=== PATIENT | female | born 1940 | race Two or more races ===

== ENCOUNTER 2023-10-27 18:19 | Inpatient (IN) | payer MEDICAID, OTHER ==
[~2023-10-27] VITALS: Ht 152.4 cm; Wt 145.5 kg
[2023-10-27 19:38] LABS: Basophils # (auto) 0.1 10 ^3/uL (0-0.2); Basophils % (auto) 0.9 % (0.0-2.0); Eosinophils # (auto) 0.3 10 ^3/uL (0-0.8); Eosinophils % (auto) 4.3 % (0.0-7.0); Hematocrit 33.7 % (36.0-46.0); Hemoglobin 11.4 g/dL (12.2-16.2); Lymphocytes # (auto) 1.1 10 ^3/uL (0.4-5.4); Lymphocytes % (auto) 16.7 % (10.0-50.0); Mean Corpuscular Hemoglobin 31.6 pg (28.0-32.0); Mean Corpuscular Hgb Conc. 33.8 g/dL (32.0-36.0); Mean Corpuscular Volume 93.6 fL (80.0-100.0); Monocytes # (auto) 0.5 10 ^3/uL (0-1.3); Monocytes % (auto) 8.4 % (0.0-12.0); Neutrophils # (auto) 4.4 10 ^3/uL (1.6-8.6); Neutrophils % (auto) 69.7 % (37.0-80.0); Nucleated Red Blood Cells % 0.1 %; Platelet Count (auto) 132 10^3/uL (140-450); Red Blood Cells 3.61 10^6/uL (4.0-5.20); White Blood Cell 6.3 10^3/uL (4.4-10.8)
[2023-10-27 19:57] LABS: Alanine Aminotransferase 12 U/L (7-40); Albumin 3.7 g/dL (3.2-4.8); Alkaline Phosphatase 61 U/L (46-116); Anion Gap 6 (5-15); Calcium 8.9 mg/dL (8.7-10.4); Carbon Dioxide 24 mmol/L (20-30); Chloride 107 mmol/L (98-107); Glucose 140 mg/dL (74-106); Potassium 4.5 mmol/L (3.5-5.1); Sodium 137 mmol/L (136-145)
[2023-10-27 19:58] LABS: Aspartate Aminotransferase 15 U/L (13-40); Bilirubin, Total 0.3 mg/dL (0.2-1.0); Blood Urea Nitrogen 17 mg/dL (9-23); Total Protein 6.3 g/dL (5.7-8.2)
[2023-10-27] MEDS ORDERED: ACETAMINOPHEN 325 MG TAB PO PRN (21:15)
[2023-10-27 22:00] VITALS: PULSE 80; RESP 12; O2SAT 97
[2023-10-27 22:14] LABS: INR 1.03 (0.9-1.15); Partial Thromboplastin Time 29.6 SEC (24.5-34.5); Prothrombin Time 10.9 sec (9.3-11.8)
[2023-10-27] MEDS: fentaNYL CITRATE 100 MCG/2 ML VL IV ONE (22:25)
[2023-10-27] MEDS: SODIUM CHLORIDE 0.9% 500 ML IV ONE (22:26)
[2023-10-27] MEDS: HYDROcodone-ACET 5/325MG TAB PO ONE (22:26)
[2023-10-27] MEDS: hydrALAZINE HCL 20 MG/ML VL IV PRN (23:00)
[2023-10-28] VITALS (8 sets, daily range): BP systolic 121–155; BP diastolic 51–79; PULSE 64–83; RESP 16–20; TEMP 97.6–98.4; O2SAT 96–99
[2023-10-28] MEDS: MORPHINE SULFATE INJ 2 MG/ml SYRG IV PRN (03:15)
[2023-10-28] MEDS ORDERED: PROP60CA34 PO (04:47)
[2023-10-28] MEDS ORDERED: LEVO-848 PO (04:47)
[2023-10-28] MEDS ORDERED: ACET-1304 PO (04:47)
[2023-10-28] MEDS: ONDANSETRON HCL 4 MG/2 ML VIAL IV PRN (06:42)
[2023-10-28 11:06] LABS: Basophils # (auto) 0 10 ^3/uL (0-0.2); Basophils % (auto) 0.6 % (0.0-2.0); Eosinophils # (auto) 0 10 ^3/uL (0-0.8); Eosinophils % (auto) 0.3 % (0.0-7.0); Hematocrit 34.7 % (36.0-46.0); Hemoglobin 11.5 g/dL (12.2-16.2); Lymphocytes # (auto) 0.7 10 ^3/uL (0.4-5.4); Lymphocytes % (auto) 9.8 % (10.0-50.0); Mean Corpuscular Hgb Conc. 33.1 g/dL (32.0-36.0); Mean Corpuscular Volume 96.8 fL (80.0-100.0); Monocytes # (auto) 0.4 10 ^3/uL (0-1.3); Monocytes % (auto) 6.4 % (0.0-12.0); Neutrophils # (auto) 5.7 10 ^3/uL (1.6-8.6); Neutrophils % (auto) 82.9 % (37.0-80.0); Platelet Count (auto) 72 10^3/uL (140-450); Red Blood Cells 3.59 10^6/uL (4.0-5.20); Red Cell Distribution Width 14.2 % (11.8-14.3); White Blood Cell 6.9 10^3/uL (4.4-10.8)
[2023-10-28 11:25] LABS: Alanine Aminotransferase 10 U/L (7-40); Albumin 3.7 g/dL (3.2-4.8); Alkaline Phosphatase 62 U/L (46-116); Anion Gap 8 (5-15); Aspartate Aminotransferase 12 U/L (13-40); BUN/Creatinine Ratio 20.8 (10.0-20.0); Bilirubin, Total 0.6 mg/dL (0.2-1.0); Blood Urea Nitrogen 10 mg/dL (9-23); Calcium 8.3 mg/dL (8.7-10.4); Carbon Dioxide 21 mmol/L (20-30); Chloride 107 mmol/L (98-107); Glucose 144 mg/dL (74-106); Sodium 136 mmol/L (136-145); Total Protein 6.2 g/dL (5.7-8.2)
[2023-10-29 01:00] VITALS: BP 135/62; PULSE 80; RESP 20; TEMP 97.8; O2SAT 98
[2023-10-29 05:00] VITALS: BP 157/62; PULSE 79; RESP 20; TEMP 98.1; O2SAT 97
[2023-10-29 07:39] LABS: Basophils # (auto) 0 10 ^3/uL (0-0.2); Basophils % (auto) 0.3 % (0.0-2.0); Eosinophils # (auto) 0.2 10 ^3/uL (0-0.8); Hemoglobin 11.5 g/dL (12.2-16.2); Lymphocytes # (auto) 1.6 10 ^3/uL (0.4-5.4); Lymphocytes % (auto) 26.2 % (10.0-50.0); Mean Corpuscular Hemoglobin 32.1 pg (28.0-32.0); Mean Corpuscular Hgb Conc. 33.8 g/dL (32.0-36.0); Monocytes # (auto) 0.7 10 ^3/uL (0-1.3); Monocytes % (auto) 10.7 % (0.0-12.0); Neutrophils # (auto) 3.8 10 ^3/uL (1.6-8.6); Neutrophils % (auto) 59.8 % (37.0-80.0); Nucleated Red Blood Cells % 0.1 %; Red Blood Cells 3.58 10^6/uL (4.0-5.20); Red Cell Distribution Width 14.4 % (11.8-14.3); White Blood Cell 6.3 10^3/uL (4.4-10.8)
[2023-10-29] MEDS ORDERED: PHENYLEPHRINE HCL 10 MG/ML VL ONE ×2 (07:40→08:50)
[2023-10-29 07:44] LABS: Platelet Count (auto) 112 10^3/uL (140-450)
[2023-10-29 07:49] LABS: Anion Gap 4 (5-15); Carbon Dioxide 26 mmol/L (20-30); Chloride 107 mmol/L (98-107); Sodium 137 mmol/L (136-145)
[2023-10-29 07:50] LABS: Calcium 8.9 mg/dL (8.7-10.4)
[2023-10-29 07:55] LABS: BUN/Creatinine Ratio 15.6 (10.0-20.0); Blood Urea Nitrogen 10 mg/dL (9-23); Glucose 122 mg/dL (74-106); INR 1.05 (0.9-1.15); Partial Thromboplastin Time 30.3 SEC (24.5-34.5); Prothrombin Time 11.1 sec (9.3-11.8)
[2023-10-29] MEDS: ceFAZolin 2 GM/D5W50ml 50 ML IV ONE (07:58)
[2023-10-29] MEDS ORDERED: fentaNYL CITRATE 100 MCG/2 ML VL ONE (08:00)
[2023-10-29] MEDS ORDERED: MIDAZOLAM HCL 2MG/2ML 2ml VIAL (1mg/ml) ONE (08:00)
[2023-10-29] MEDS ORDERED: PROPOFOL 10 MG/ML 20 ML IV ONE (08:02)
[2023-10-29] MEDS: TRANEXAMIC ACID 20 ML ONE (08:15)
[2023-10-29] MEDS: ROPIVACAINE 0.5% (5MG/ML) 20ML AMPULE IJ ONE (08:16)
[2023-10-29] MEDS ORDERED: ePHEDrine SULFATE 50 MG/ML AMP ONE (08:50)
[2023-10-29] MEDS ORDERED: MEPERIDINE HCL (25 MG/ML) 1ML VIAL IV PRN (09:45)
[2023-10-29] MEDS ORDERED: HYDROmorphone HCL 2 MG/ML VL/or syr IV PRN (09:45)
[2023-10-29] MEDS: ONDANSETRON HCL 4 MG/2 ML VIAL IV ONE (09:45)
[2023-10-29 16:32] VITALS: BP 125/66; PULSE 97; RESP 18; TEMP 99.6; O2SAT 97
[2023-10-29 17:10] LABS: Urine Bacteria None Seen /hpf (None Seen)
[2023-10-29 18:06] LABS: Urine Blood 2+ /uL (Negative); Urine Clarity Clear (Clear); Urine Color Yellow (Yellow); Urine Protein, UAD TRACE (Negative); Urine Specific Gravity 1.025 (1.001-1.035); Urine Urobilinogen Normal (Negative); Urine WBC 4 /hpf (0 - 5)
[2023-10-29] MEDS ORDERED: ENOXAPARIN SOD 40 MG/0.4 ML SYRINGE SC ONE (20:00)
[2023-10-29 21:00] VITALS: BP 155/69; PULSE 95; RESP 16; TEMP 99; O2SAT 94
[2023-10-30] VITALS (8 sets, daily range): BP systolic 119–150; BP diastolic 56–71; PULSE 57–97; RESP 14–18; TEMP 97.6–99.4; O2SAT 94–97
[2023-10-30] MEDS: ENOXAPARIN SOD 40 MG/0.4 ML SYRINGE SC SCH (10:34)
[2023-10-30] MEDS ORDERED: LEVOTHYROXINE SODIUM 25 MCG TAB PO ONE (17:00)
[2023-10-30] MEDS: LEVOTHYROXINE SODIUM 25 MCG TAB PO ONE (18:57)
[2023-10-30] MEDS: PROPRANOLOL HCL 20 MG TAB PO SCH (21:27)
[2023-10-31] MEDS: LEVOTHYROXINE SODIUM 25 MCG TAB PO SCH (06:07)
[2023-10-31 08:00] VITALS: O2SAT 97
[2023-10-31 09:00] VITALS: BP 149/74; PULSE 78; RESP 18; TEMP 98.2; O2SAT 97
[2023-10-31] MEDS: HYDROcodone-ACET 5/325MG TAB PO PRN (10:01)
[2023-10-31 13:00] VITALS: BP 143/69; PULSE 72; RESP 16; TEMP 98.6; O2SAT 100
[2023-10-31] MEDS: LACTULOSE 20Gm/30ML SOLN PO ONE (16:10)
[2023-10-31 17:00] VITALS: BP 119/56; PULSE 69; RESP 16; TEMP 98.1; O2SAT 96
== END 2023-10-31 18:10 | disposition home health service (06) | DRG 308 ==
LOC: EDBD 18:19 → ER 18:19 → OVERFLOW 21:17 → WEST WING 10-28 02:55
PROVIDERS: ADMIT Internal Medicine; ATTEND Emergency Medicine
PROC: 0QS704Z Reposition Left Upper Femur with Internal Fixation Device, Open Approach (ICD-10-PCS; principal; 2023-10-29 08:15)
DX: S72.142A Displaced intertrochanteric fracture of left femur, initial encounter for closed fracture (principal); R16.0 Hepatomegaly, not elsewhere classified; S32.039A Unspecified fracture of third lumbar vertebra, initial encounter for closed fracture; E03.9 Hypothyroidism, unspecified; I10 Essential (primary) hypertension; S62.607A Fracture of unspecified phalanx of left little finger, initial encounter for closed fracture; W01.0XXA Fall on same level from slipping, tripping and stumbling without subsequent striking against object, initial encounter; Z82.49 Family history of ischemic heart disease and other diseases of the circulatory system; Y93.89 Activity, other specified; Y92.89 Other specified places as the place of occurrence of the external cause; Y99.8 Other external cause status; Z88.0 Allergy status to penicillin; Z79.899 Other long term (current) drug therapy
CPT/HCPCS: 36415; 71045; 72170; 73120; 73502; 74176; 76000; 80048; 80053; 81001; 82306; 82607; 83036; 84443; 85025; 85610; 85730; 86850; 86900; 86901; 97163; G0378; J2250; J2405; J2704